=== PATIENT | female | born 1990 | race Two or more races ===

== ENCOUNTER 2017-10-06 22:23 | Emergency (ER) | payer OTHER ==
[2017-10-06 22:28] VITALS: BP 117/78; PULSE 64; TEMP 98; BMI 25.7
--- NOTE | 2017-10-06 23:06 | PDOC ---
History of Present Illness - General Chief Complaint: Vaginal Sxs Stated Complaint: vagina pain and discharge Time Seen by Provider: 10/06/17 23:03 - History of Present Illness Initial Comments: 10/07/17 00:00 The patient is a 26 year old female with no significant PMH who presents for evaluation of vaginal discharge and pain with urination. The patient reports a 5 day history of milky vaginal discharge with associated burning pain with urination and lower abdominal pain. The patient was evaluated by her primary care provider who diagnosed her with a fungal infection and gave her "cream" to treat her symptoms, but she reports continued symptoms prompting her presentation to the ED for further evaluation. She otherwise denies fevers, chills, SOB, chest pain, nausea, vomiting, or changes with bowel movements. She denies a history of STI and is sexually active with 1 partner. Past History - Past Medical History Allergies/Adverse Reactions: Allergies Allergy/AdvReac Type Severity Reaction Status Date / Time No Known Allergies Allergy Verified 10/06/17 22:28 Home Medications: Ambulatory Orders Cephalexin Monohydrate [Keflex -] 500 mg PO BID #14 capsule 10/07/17 Fluconazole [Diflucan -] 100 mg PO DAILY #5 tablet 10/07/17 - Suicide/Smoking/Psychosocial Hx Smoking History: Never smoked Have you smoked in the past 12 months: No Information on smoking cessation initiated: No Hx Alcohol Use: No Drug/Substance Use Hx: No Substance Use Type: None Review of Systems - Review of Systems Comments:: 10/07/17 00:03 Constitutional: No fevers, chills, fatigue, malaise HEENT: No Rhinorrhea, nasal congestion, visual changes Cardiovascular: No chest pain, syncope, palpitations, lightheadedness Respiratory: No Cough, SOB, Hemoptysis, Gastrointestinal:Lower abdominal pain. No Nausea, Vomiting, Constipation, Diarrhea, Melena Genitourinary: Dysuria, Vaginal Discharge. No Frequency, Urgency, Hesitancy, Hematuria, Flank pain Musculoskeletal: No Myalgia, arthralgia Skin: No rashes, itching, bruising, pallor Neurologic: No Headache, Dizziness, Numbness, Weakness, or Tingling Psychiatric: No Hallucinations. No SI or HI *Physical Exam - Vital Signs Last Vital Signs Temp Pulse Resp BP Pulse Ox 98.0 F 64 16 117/78 100 10/06/17 22:26 07/07/18 22:26 10/06/17 22:26 10/06/17 22:26 10/06/17 22:26 - Physical Exam Comments: 10/07/17 00:05 General Appearance: Nourished. No Apparent Distress HEENT: No Pharyngeal Erythema, Tonsillar Exudate, Tonsillar Erythema Neck: No Cervical Lymphadenopathy Respiratory/Chest: Lungs Clear, Normal Breath Sounds. No Crackles, Rales, Rhonchi, Wheezing Cardiovascular: Regular Rhythm, Regular Rate. No Murmur, Gallops, Rubs Gastrointestinal/Abdominal: Normal Bowel Sounds, Soft. Suprapubic tenderness to palpation on exam. No Guarding, Rebound, Musculoskeletal: No CVA Tenderness Extremity: Normal Capillary Refill Integumentary: Normal Color, Dry, Warm Neurologic: Fully Oriented, Alert, Normal Mood/Affect, Normal Response, Medical Decision Making - Medical Decision Making 10/07/17 00:06 The patient is a 26 year old female with no significant PMH who presents for evaluation of vaginal discharge and pain with urination. Given the patient's history and physical exam, it is likely her symptoms are due to a fungal infection and UTI. We will obtain a ua, urine culture, urine preg to evaluate further. We will continue to monitor and reassess while here in the ED. 10/07/17 02:02 UA demonstrates positive leuk esterase and elevated wbc to 145 consistent with a UTI. We will treat the patient with diflucan and keflex and are comfortable discharging the patient home with primary care provider follow up. We discussed the results, plan, and return precautions with the patient who voiced understanding and is agreeable with the plan. *DC/Admit/Observation/Transfer Diagnosis at time of Disposition: Vaginal discharge UTI (urinary tract infection) Qualifiers: Urinary tract infection type: site unspecified Hematuria presence: without hematuria Qualified Code(s): N39.0 - Urinary tract infection, site not specified - Discharge Dispostion Disposition: HOME Condition at time of disposition: Stable Decision to Admit order: No - Prescriptions Prescriptions: Cephalexin Monohydrate [Keflex -] 500 mg PO BID #14 capsule Fluconazole [Diflucan -] 100 mg PO DAILY #5 tablet - Referrals - Patient Instructions Printed Discharge Instructions: DI for Vaginal Discharge Additional Instructions: Please return to the ER if you experience concerning or worsening symptoms including worsening pain, fevers, or vomiting. Your urine results show a urinary tract infection. We have sent a prescription for antibiotics to your pharmacy that you should take as directed. We have also sent a prescription for anti-fungal medication that you should take one more dose of. We have sent extra medication should you have continued symptoms. Please call to schedule a follow up appointment with your primary care provider with in 1 week to discuss your ER visit and further management of your symptoms. - Post Discharge Activity
--- NOTE | 2017-10-06 23:53 | PDOC ---
Attending Attestation - Resident Resident Name: Alejandro Angulo - ED Attending Attestation I have performed the following: I have examined & evaluated the patient, The case was reviewed & discussed with the resident, I agree w/resident's findings & plan, Exceptions are as noted - HPI HPI: 10/07/17 00:02 Ms Burton is a 26 yo F who presents with a complaint of dysuria and vaginal discharge She is , lmp September 14 She has a history of IUD placement with removal Since IUD removal pt has noted repeated vaginal infections She typically is given diflucan This time, her symptoms have been present for the past 5 days Pt is pruritic (+) white discharge She was seen by her PMD who gave her Monistat she has been using it for the past few days with no improvement in her symptoms She now has pain with urination Suprapubic pain No flank pain No fevers - Physicial Exam PE: 10/07/17 00:19 A&O x 3 RRR CTA Suprapubic tenderness to palpation, no guarding, no rebound No CVA tenderness to palpation Pelvic examination per resident - Medical Decision Making 10/07/17 00:20 26 yo F with recently diagnosed candidal vaginitis on monostat Now with dysuria DD: UTI, Candidal Vaginitis, contact vaginitis, STD unlikely Will do UA Will prescribe diflucan Clinical impression: candidal vaginitis, initial presentation
[2017-10-07 00:36] LABS: URINE APPEARANCE SLCLOUDY; URINE BILIRUBIN NEGATIVE (<2.0 mg/dL); URINE COLOR YELLOW; URINE GLUCOSE (UA) NEGATIVE (NEGATIVE); URINE KETONE TRACE (NEGATIVE); URINE NITRITE NEGATIVE (NEGATIVE); URINE UROBILINOGEN NEGATIVE mg/dL (0.2-1.0)
[2017-10-07] MEDS ORDERED: FLUCONAZOLE 100 MG TABLET (UD) PO ONE (00:42)
[2017-10-07 00:54] LABS: URINE LEUK ESTERASE 2+ (NEGATIVE); URINE PROTEIN 1+ (NEGATIVE)
[2017-10-07 01:13] LABS: EPI CELLS RARE /HPF (FEW); URINE MUCUS MANY
--- NOTE | 2017-10-09 08:15 | PDOC ---
Patient Follow-up (Call Back) - Post ED Follow - Up Condition at time of discharge: Stable Disposition at time of original discharge: HOME Reason for Call Back: Abnwl. Microbiology (Urine culture on preliminary shows lactose fermenting negative bacilli. Patient currently on Keflex. Will await sensitivity.)
== END 2017-10-07 01:45 | disposition home or self-care (01) ==
LOC: JERFT 22:23 → JER 22:23
DX: N39.0 Urinary tract infection, site not specified (principal); N89.8 Other specified noninflammatory disorders of vagina
CPT/HCPCS: 81003; 81015; 84703; 87086; 87186; 99283-25

== ENCOUNTER 2020-03-23 22:05 | Emergency (ER) | payer OTHER ==
[2020-03-23 22:13] VITALS: BP 124/74; PULSE 85; TEMP 98.1; BMI 26.5
[2020-03-23] MEDS ORDERED: IBUPROFEN 600 MG TABLET (FP) PO ONE ×2 (22:30→22:44)
[2020-03-23] MEDS ORDERED: DIPHTH,PERTUSS(ACELL),TET 0.5 ML DISP.SYRIN IM ONE ×2 (22:33→22:44)
== END 2020-03-23 23:28 | disposition home or self-care (01) ==
LOC: JER 22:05 → JERFT 22:05
PROC: 0HQHXZZ Repair Right Upper Leg Skin, External Approach (ICD-10-PCS; principal; 2020-03-23)
PROC: 3E0234Z Introduction of Serum, Toxoid and Vaccine into Muscle, Percutaneous Approach (ICD-10-PCS; principal; 2020-03-23)
DX: S81.011A Laceration without foreign body, right knee, initial encounter (principal); W01.0XXA Fall on same level from slipping, tripping and stumbling without subsequent striking against object, initial encounter
CPT/HCPCS: 73560-TC-RT-FY; 90715; 99283-25

== ENCOUNTER 2020-03-30 09:52 | Emergency (ER) | payer OTHER ==
[2020-03-30 10:07] VITALS: BP 110/75; PULSE 73; TEMP 97.9; BMI 26.9
== END 2020-03-30 10:15 | disposition home or self-care (01) ==
LOC: JERFT 09:52
DX: Z48.02 Encounter for removal of sutures (principal); S81.011D Laceration without foreign body, right knee, subsequent encounter
CPT/HCPCS: 99281-25

== ENCOUNTER 2022-02-03 12:52 | Emergency (ER) | payer OTHER ==
[2022-02-03 13:15] VITALS: BP 101/70; PULSE 104; RESP 18; TEMP 101.4; BMI 26.8
[2022-02-03] MEDS ORDERED: ACETAMINOPHEN 500 MG TABLET (FP) PO ONE (13:42)
== END 2022-02-03 18:12 | disposition home or self-care (01) ==
LOC: JER 12:52
DX: R51.9 Headache, unspecified (principal); R50.9 Fever, unspecified; J09.X2 Influenza due to identified novel influenza A virus with other respiratory manifestations
CPT/HCPCS: 0241U-QW; 99283-25

== ENCOUNTER 2022-08-24 01:22 | Emergency (ER) | payer OTHER ==
[2022-08-24] MEDS ORDERED: morphine CARPU-JECT 2 MG/1 ML DISP.SYRIN IVPUSH ONE (02:07)
[2022-08-24 02:42] VITALS: BP 112/77; PULSE 89; RESP 18; TEMP 98.4; BMI 27.4
[2022-08-24] MEDS ORDERED: ONDANSETRON 4 MG/2 ML VIAL IVPUSH ONE (02:51)
[2022-08-24] MEDS ORDERED: ONDANSETRON 4 MG/2 ML VIAL ONE (02:52)
[2022-08-24 02:57] LABS: BASO % 0.7 % (0-2.0); EOS % 0.4 % (0-4.5); HEMATOCRIT 37.8 % (32.4-45.2); HEMOGLOBIN 12.8 GM/dL (10.7-15.3); LYMPH % 30.3 % (8-40); MCH 27.6 pg (25.7-33.7); MCHC 33.7 g/dl (32.0-36.0); MEAN PLT VOLUME 7.7 fl (7.5-11.1); NEUT % 59.6 % (42.8-82.8); PLATELET COUNT 256 10^3/uL (134-434); RBC 4.61 M/mm3 (3.60-5.2); RDW 14.6 % (11.6-15.6); WHITE BLOOD COUNT 9.3 K/mm3 (4.0-10.0)
[2022-08-24 03:02] LABS: EPI CELLS >36 /uL (0-25.1); HYALINE CASTS 3 /uL (0-3.1); PH,URINE 5.5 (5.0-8.0); URINE APPEARANCE CLEAR; URINE BACTERIA 1186 /uL (0-1359); URINE BILIRUBIN NEGATIVE (NEGATIVE); URINE COLOR YELLOW; URINE GLUCOSE (UA) NEGATIVE (NEGATIVE); URINE KETONE NEGATIVE (NEGATIVE); URINE LEUK ESTERASE 1+ (NEGATIVE); URINE NITRITE NEGATIVE (NEGATIVE); URINE PROTEIN NEGATIVE (NEGATIVE); URINE RBC 14 /uL (0-23.9); URINE UROBILINOGEN 0.2 mg/dL (0.2-1.0); URINE WBC 86 /uL (0-25.8)
[2022-08-24 03:07] LABS: POTASSIUM 4.2 mmol/L (3.5-5.1)
[2022-08-24] MEDS ORDERED: CEFTRIAXONE 1,000 MG in DEXTROSE 5%-WATER - 50 ML IVPB ONE (03:33)
[2022-08-24 04:00] LABS: CALCIUM 9.4 mg/dL (8.5-10.1)
[2022-08-24 04:01] LABS: ALBUMIN 3.9 g/dl (3.4-5.0)
[2022-08-24 04:05] LABS: BILIRUBIN,TOTAL 0.2 mg/dL (0.2-1)
[2022-08-24 04:06] LABS: TOT PROT 7.8 g/dl (6.4-8.2)
[2022-08-24] MEDS ORDERED: CEFTRIAXONE 1 GM/50 ML BAG ONE (04:20)
== END 2022-08-24 05:49 | disposition home or self-care (01) ==
LOC: JER 01:22
PROC: 3E03329 Introduction of Other Anti-infective into Peripheral Vein, Percutaneous Approach (ICD-10-PCS; principal; 2022-08-24)
PROC: 3E033GC Introduction of Other Therapeutic Substance into Peripheral Vein, Percutaneous Approach (ICD-10-PCS; 2022-08-24)
PROC: 3E033GC Introduction of Other Therapeutic Substance into Peripheral Vein, Percutaneous Approach (ICD-10-PCS; 2022-08-24)
DX: M79.604 Pain in right leg (principal); M54.50 Low back pain, unspecified; M53.3 Sacrococcygeal disorders, not elsewhere classified; R07.9 Chest pain, unspecified; R10.9 Unspecified abdominal pain; R10.2 Pelvic and perineal pain; S30.0XXA Contusion of lower back and pelvis, initial encounter; W10.8XXA Fall (on) (from) other stairs and steps, initial encounter; Y92.008 Other place in unspecified non-institutional (private) residence as the place of occurrence of the external cause
CPT/HCPCS: 36415; 71250-TC; 73552-TC-RT-FY; 74176-TC; 80053; 81003; 84703; 85025; 99285-25

== ENCOUNTER 2022-12-14 11:01 | Emergency (ER) | payer OTHER ==
[2022-12-14 11:13] VITALS: BP 96/69; PULSE 67; RESP 18; TEMP 97.7; BMI 29.2
== END 2022-12-14 12:42 | disposition home or self-care (01) ==
LOC: JERFT 11:01
DX: T25.222A Burn of second degree of left foot, initial encounter (principal); T24.132A Burn of first degree of left lower leg, initial encounter; T31.0 Burns involving less than 10% of body surface; X10.2XXA Contact with fats and cooking oils, initial encounter
CPT/HCPCS: 99283-25

== ENCOUNTER 2023-06-16 02:25 | Emergency (ER) | payer OTHER ==
[2023-06-16 02:36] VITALS: BP 107/77; PULSE 95; RESP 18; TEMP 98.7; BMI 31.2
== END 2023-06-16 05:23 | disposition home or self-care (01) ==
LOC: JER 02:25
DX: R05.9 Cough, unspecified (principal); J06.9 Acute upper respiratory infection, unspecified; Z20.822 Contact with and (suspected) exposure to COVID-19
CPT/HCPCS: 0241U-QW; 71046-TC-FY; 99284-25

== ENCOUNTER 2024-04-07 04:16 | Day surgery (SDC) | payer OTHER ==
[2024-03-31 13:17] VITALS: BMI 29.7
[2024-04-07] MEDS ORDERED: MIDAZOLAM HCL 2 MG/2 ML SINGLE DOSE VIAL ONE (14:43)
[2024-04-07] MEDS ORDERED: PROPOFOL 20 ML ONE (14:43)
[2024-04-07] MEDS ORDERED: DEXAMETHASONE SOD PHOSPHATE 4 MG/1 ML VIAL ONE (15:10)
[2024-04-07] MEDS ORDERED: KETOROLAC TROMETHAMINE 30 MG/1 ML VIAL ONE (15:10)
[2024-04-07] MEDS ORDERED: ONDANSETRON 4 MG/2 ML VIAL ONE (15:10)
[2024-04-07] MEDS ORDERED: ONDANSETRON 4 MG/2 ML VIAL IVPUSH PRN (15:57)
[2024-04-07] MEDS: ACETAMINOPHEN 1000 MG/100 ML BAG IVPB ONE (16:05)
[2024-04-07] MEDS: LACTATED RINGERS SOLUTION 1,000 ML IV SCH (16:06)
[2024-04-07 17:56] VITALS: RESP 16
[2024-04-07 18:53] VITALS: BP 92/58; PULSE 74; TEMP 96.9
== END 2024-04-07 18:35 | disposition home or self-care (01) ==
LOC: JASU-SURG 04:16
PROVIDERS: ATTEND Obstetrics & Gynecology
PROC: 0UBC8ZZ Excision of Cervix, Via Natural or Artificial Opening Endoscopic (ICD-10-PCS; principal; 2024-04-07 12:15)
DX: N93.9 Abnormal uterine and vaginal bleeding, unspecified (principal); N84.1 Polyp of cervix uteri
CPT/HCPCS: 81025; 86850; 86900; 86901; 88305-TC; 94760; J0131